=== PATIENT | female | born 1980 | race Caucasian/White ===

== ENCOUNTER → 2018-05-09 | Outpatient (CLI) | payer MEDICAID, OTHER ==
--- NOTE | 2018-05-09 08:43 | US ---
EXAMINATION TYPE: US pelvis complete transvag DATE OF EXAM: 05/09/2018 COMPARISON: NONE CLINICAL HISTORY: N92.0 Menorrhagia. Heavy menses TECHNIQUE: Transvaginal (TV) and Transabdominal (TA) . Transabdominal sonographic images of the pel vis were acquired. Transvaginal sonographic images were medically necessary to better assess the fol lowing anatomy: Endometrium Date of LMP: 04/16/2018, EXAM MEASUREMENTS: Uterus: 9.7 x 6.9 x 5.4 cm Endometrial Stripe: 1.5 cm Right Ovary: 3.6 x 2.4 x 2.7 cm Left Ovary: 4.0 x 2.8 x 2.1 cm 1. Uterus: Retroverted Appears heterogenous 2. Endometrium: Upper limits of normal. Possible echogenic focus with vascular stalk - 1.0 x 0.9 x 0.8 cm 3. Right Ovary: simple cystic appearing lesion - 2.6 x 2.0 x 2.5 cm 4. Left Ovary: Hypoechoic lesion with peripheral vascular flow - 1.7 x 1.8 x 2.0 cm 5. Bilateral Adnexa: free fluid seen adjacent to left ovary 6. Posterior cul-de-sac: free fluid There is heterogeneous retroverted uterus with central lobulated hyperechoic area towards the fundus contiguous with endometrium could reflect focal polyp or hyperplasia. Small moderate free fluid seen in pelvic cul-de-sac. Both ovaries are seen with nonsimple cysts identified bilaterally. IMPRESSION: 1. Suspect 1.0 cm endometrial polyp or focal hyperplasia, findings could be better evaluated with pasquale ine infused hysterosonography if desired. 2. Nonsimple cyst bilateral ovaries, advised ultrasound reevaluation 6 weeks' time to reassess.
== END | disposition home or self-care (01) ==
LOC: RADUSWWP 06:51
PROVIDERS: ATTEND Family Medicine
DX: N83.201 Unspecified ovarian cyst, right side (principal); N83.202 Unspecified ovarian cyst, left side
CPT/HCPCS: 76830; 76856

== ENCOUNTER → 2018-05-09 | Outpatient (CLI) | payer MEDICAID, OTHER ==
--- NOTE | 2018-05-09 12:28 | MM ---
Reason for exam: screening (asymptomatic). History: Took hormonal contraceptives beginning at age 19. Physical Findings: A clinical breast exam by your physician is recommended on an annual basis and results should be correlated with mammographic findings. MG 3D Screening Mammo W/Cad Bilateral CC and MLO view(s) were taken. The breast tissue is heterogeneously dense. This may lower the sensitivity of mammography. There is no discrete abnormality. These results were verbally communicated with the patient and result sheet given to the patient on 05/09/18. ASSESSMENT: Negative, BI-RAD 1 RECOMMENDATION: Routine screening mammogram of both breasts in 1 year.
== END ==
LOC: RADMAMWWP 06:54
PROVIDERS: ATTEND Obstetrics & Gynecology Obstetrics
DX: Z12.31 Encounter for screening mammogram for malignant neoplasm of breast (principal)
CPT/HCPCS: 77063; 77067

== ENCOUNTER 2019-03-16 16:22 | Emergency (ER) | payer MEDICAID, OTHER ==
[2019-03-16] MEDS ORDERED: SODIUM CHLORIDE 0.9% 500 ML 500 ML IV STA (16:39)
[2019-03-16] MEDS ORDERED: NITROGLYCERIN SL TABS 0.4 MG TAB SUBLINGUAL STA (16:44)
[2019-03-16] MEDS ORDERED: NITROGLYCERIN OINT 1 INCH/GM PACKET TOPICAL STA (16:44)
[2019-03-16] MEDS ORDERED: ASPIRIN 81 MG PO STA (16:44)
--- NOTE | 2019-03-16 17:02 | ED ---
General Adult HPI - General Stated complaint: Chest and abd pain Time Seen by Provider: 03/16/19 16:25 Source: RN notes reviewed, old records reviewed - History of Present Illness Initial comments: This is a 38-year-old female presents emergency Department with pressure on the chest throughout. Patient states she also became very flushed in this occurred. Patient also states she's extremely nauseated. Patient has a history of smoking but quit a few years ago. Patient has a positive family history of heart disease. Patient denies any palpitations. Patient denies any recent fever chills or cough. Patient denies any vomiting or diarrhea. Patient states she does have a little discomfort in the epigastric region. Patient denies any radiation of the discomfort to her jaw back or arm. Patient denies any swelling or calf tenderness. - Related Data Home Medications Medication Instructions Recorded Confirmed No Known Home Medications 03/16/19 03/16/19 Allergies Allergy/AdvReac Type Severity Reaction Status Date / Time No Known Allergies Allergy Verified 03/16/19 17:17 Review of Systems ROS Statement: Those systems with pertinent positive or pertinent negative responses have been documented in the HPI. ROS Other: All systems not noted in ROS Statement are negative. General Exam - General Exam Comments Initial Comments: GENERAL: Patient is well-developed and well-nourished. Patient is nontoxic and well- hydrated and is in mild distress. ENT: Neck is soft and supple. No significant lymphadenopathy is noted. Oropharynx is clear. Moist mucous membranes. Neck has full range of motion without e liciting any pain. EYES: The sclera were anicteric and conjunctiva were pink and moist. Extraocular movements were intact and pupils were equal round and reactive to light. Eyelids were unremarkable. PULMONARY: Unlabored respirations. Good breath sounds bilaterally. No audible rales rhonchi or wheezing was noted. CARDIOVASCULAR: There is a regular rate and rhythm without any murmurs gallops or rubs. ABDOMEN: Mild epigastric abdominal pain SKIN: Skin is clear with no lesions or rashes and otherwise unremarkable. NEUROLOGIC: Patient is alert and oriented x3. Cranial nerves II through XII are grossly intact. Motor and sensory are also intact. Normal speech, volume and content. Symmetrical smile. MUSCULOSKELETAL: Normal extremities with adequate strength and full range of motion. No lower extremity swelling or edema. No calf tenderness. LYMPHATICS: No significant lymphadenopathy is noted PSYCHIATRIC: Normal psychiatric evaluation. Course Vital Signs 03/16/19 03/16/19 03/16/19 17:07 17:11 17:53 Temperature 98.6 F Pulse Rate 87 73 Pulse Rate [ 94 [employer] Del[employer] ] Respiratory 18 18 Rate Blood Pressure 121/93 129/80 O2 Sat by Pulse 98 Oximetry Medical Decision Making - Medical Decision Making EKG shows a normal sinus rhythm at 82 bpm [place] interval is 144 QRS is 70 QT interval 370 QTC is 432. Patient's troponin elevation or depression. Chest x-ray shows no acute abnormality. Gallbladder showed no obvious abnormalities. Patient's common bile duct could not be visualized. Patient was feeling better but still continued to have some chest pressure. Patient did not want to stay and stated that she understood the risks and would be going home. I convinced the patient to stay for a second troponin after which if it is normal she will go home. I still recommended the patient stay. - Lab Data Result diagrams: 03/16/19 14:57 03/16/19 14:57 Lab Results 03/16/19 03/16/19 03/16/19 Range/Units 14:57 14:57 14:57 WBC 10.8 H (3.8-10.6) k/uL RBC 4.88 (3.80-5.40) m/uL Hgb 14.6 (11.4-16.0) gm/dL Hct 44.0 (34.0-46.0) % MCV 90.2 (80.0-100.0) fL MCH 29.9 (25.0-35.0) pg MCHC 33.2 (31.0-37.0) g/dL RDW 12.9 (11.5-15.5) % Plt Count 269 (150-450) k/uL Neutrophils % 66 % Lymphocytes % 25 % Monocytes % 5 % Eosinophils % 2 % Basophils % 1 % Neutrophils # 7.1 (1.3-7.7) k/uL Lymphocytes # 2.7 (1.0-4.8) k/uL Monocytes # 0.5 (0-1.0) k/uL Eosinophils # 0.2 (0-0.7) k/uL Basophils # 0.1 (0-0.2) k/uL PT 9.9 (9.0-12.0) sec INR 0.9 (<1.2) APTT 22.8 (22.0-30.0) sec D-Dimer (<0.60) mg/L FEU Sodium 136 L (137-145) mmol/L Potassium 3.7 (3.5-5.1) mmol/L Chloride 104 (98-107) mmol/L Carbon Dioxide 25 (22-30) mmol/L Anion Gap 7 mmol/L BUN 9 (7-17) mg/dL Creatinine 0.69 (0.52-1.04) mg/dL Est GFR (CKD-EPI)AfAm >90 (>60 ml/min/1.73 sqM) Est GFR (CKD-EPI)NonAf >90 (>60 ml/min/1.73 sqM) Glucose 89 (74-99) mg/dL Calcium 10.1 (8.4-10.2) mg/dL Magnesium 2.1 (1.6-2.3) mg/dL Total Bilirubin 0.6 (0.2-1.3) mg/dL AST 25 (14-36) U/L ALT 15 (4-34) U/L Alkaline Phosphatase 72 (38-126) U/L Troponin I (0.000-0.034) ng/mL Total Protein 7.2 (6.3-8.2) g/dL Albumin 4.3 (3.5-5.0) g/dL Amylase 49 (30-110) U/L Lipase 59 (23-300) U/L 03/16/19 03/16/19 Range/Units 14:57 14:57 WBC (3.8-10.6) k/uL RBC (3.80-5.40) m/uL Hgb (11.4-16.0) gm/dL Hct (34.0-46.0) % MCV (80.0-100.0) fL MCH (25.0-35.0) pg MCHC (31.0-37.0) g/dL RDW (11.5-15.5) % Plt Count (150-450) k/uL Neutrophils % % Lymphocytes % % Monocytes % % Eosinophils % % Basophils % % Neutrophils # (1.3-7.7) k/uL Lymphocytes # (1.0-4.8) k/uL Monocytes # (0-1.0) k/uL Eosinophils # (0-0.7) k/uL Basophils # (0-0.2) k/uL PT (9.0-12.0) sec INR (<1.2) APTT (22.0-30.0) sec D-Dimer 0.32 (<0.60) mg/L FEU Sodium (137-145) mmol/L Potassium (3.5-5.1) mmol/L Chloride (98-107) mmol/L Carbon Dioxide (22-30) mmol/L Anion Gap mmol/L BUN (7-17) mg/dL Creatinine (0.52-1.04) mg/dL Est GFR (CKD-EPI)AfAm (>60 ml/min/1.73 sqM) Est GFR (CKD-EPI)NonAf (>60 ml/min/1.73 sqM) Glucose (74-99) mg/dL Calcium (8.4-10.2) mg/dL Magnesium (1.6-2.3) mg/dL Total Bilirubin (0.2-1.3) mg/dL AST (14-36) U/L ALT (4-34) U/L Alkaline Phosphatase (38-126) U/L Troponin I <0.012 (0.000-0.034) ng/mL Total Protein (6.3-8.2) g/dL Albumin (3.5-5.0) g/dL Amylase (30-110) U/L Lipase (23-300) U/L Disposition Clinical Impression: Chest pain Disposition: HOME SELF-CARE Condition: Good Instructions (If sedation given, give patient instructions): Chest Pain (ED) Referrals: Avinash Holguin MD [Primary Care Provider] - 1-2 days Time of Disposition: 18:40
[2019-03-16 17:10] VITALS: RESP 18
[2019-03-16 17:10] LABS: Basophils # (A) 0.1 k/uL (0-0.2); Basophils % (A) 1 %; Eosinophils # (A) 0.2 k/uL (0-0.7); Eosinophils % (A) 2 %; HGB 14.6 gm/dL (11.4-16.0); Lymphocytes # (A) 2.7 k/uL (1.0-4.8); Lymphocytes % (A) 25 %; MCH 29.9 pg (25.0-35.0); MCHC 33.2 g/dL (31.0-37.0); MCV 90.2 fL (80.0-100.0); Mean Platelet Volume 7.2; Monocytes # (A) 0.5 k/uL (0-1.0); Monocytes % (A) 5 %; Neutrophils # (A) 7.1 k/uL (1.3-7.7); Neutrophils % (A) 66 %; Platelet Count 269 k/uL (150-450); RBC 4.88 m/uL (3.80-5.40); RDW 12.9 % (11.5-15.5); WBC 10.8 k/uL (3.8-10.6)
[2019-03-16] MEDS ORDERED: ONDANSETRON 4 MG/2 ML VIAL IVP STA (17:10)
[2019-03-16] MEDS ORDERED: METOCLOPRAMIDE 5 MG/ML 2 ML VIAL IVP STA (17:14)
[2019-03-16 17:31] LABS: INR 0.9 (<1.2); Partial Thromboplastin Time 22.8 sec (22.0-30.0); Prothrombin Time 9.9 sec (9.0-12.0)
[2019-03-16 18:00] LABS: ALT 15 U/L (4-34); AST 25 U/L (14-36); African American GFR (CKD) >90 (>60 ml/min/1.73 sqM); Albumin 4.3 g/dL (3.5-5.0); Alkaline Phosphatase 72 U/L (38-126); Amylase 49 U/L (30-110); Anion Gap 7 mmol/L; Blood Urea Nitrogen 9 mg/dL (7-17); Calcium 10.1 mg/dL (8.4-10.2); Carbon Dioxide 25 mmol/L (22-30); Chloride 104 mmol/L (98-107); Glucose 89 mg/dL (74-99); Magnesium 2.1 mg/dL (1.6-2.3); Non-African American GFR(CKD) >90 (>60 ml/min/1.73 sqM); Potassium 3.7 mmol/L (3.5-5.1); Sodium 136 mmol/L (137-145); Total Bilirubin 0.6 mg/dL (0.2-1.3); Total Protein 7.2 g/dL (6.3-8.2)
--- NOTE | 2019-03-16 18:19 | US ---
EXAMINATION TYPE: US gallbladder DATE OF EXAM: 03/16/2019 COMPARISON: NONE CLINICAL HISTORY: Epigastric abdominal pain. Epigastric pain x 1 hour. Nausea. EXAM MEASUREMENTS: Liver Length: 15.7 cm Gallbladder Wall: 0.29 cm CBD: Not visualized Right Kidney: 10.3 x 5.0 x 4.3 cm Limited due to overlying bowel gas. Pancreas: Tail slightly obscured. Portions seen appear to be wnl. Liver: Appears to be wnl. Gallbladder: Appears to be anechoic. Evidence for sonographic Talavera's sign: No CBD: Not visualized Right Kidney: No hydronephrosis or masses seen. Lower pole slightly limited due to gas. There is no ascites. IMPRESSION: No significant abnormality is evident, limited exam
--- NOTE | 2019-03-16 18:21 | XR ---
EXAMINATION TYPE: XR chest 2V DATE OF EXAM: 03/16/2019 COMPARISON: Prior chest x-ray 07/31/2009 HISTORY: Pain and nausea TECHNIQUE: Frontal and lateral views of the chest are obtained on 3 images. FINDINGS: There is no focal air space opacity, pleural effusion, or pneumothorax seen. The cardiac silhouette size is within normal limits. The osseous structures are intact, suspect mild pectus def ormity, there is mild spinal curvature. There are overlying artifacts. IMPRESSION: No acute cardiopulmonary process. Additional findings above.
[2019-03-16 21:31] VITALS: BP 102/67; PULSE 70; TEMP 98
== END 2019-03-16 21:32 | disposition home or self-care (01) ==
LOC: EC 16:22
DX: R07.89 Other chest pain (principal); R79.89 Other specified abnormal findings of blood chemistry; R10.13 Epigastric pain; Z53.20 Procedure and treatment not carried out because of patient's decision for unspecified reasons; Z87.891 Personal history of nicotine dependence; Z82.49 Family history of ischemic heart disease and other diseases of the circulatory system
CPT/HCPCS: 36415; 93005; 85379; 80053; 82150; 83690; 83735; 84484; 85025; 85610; 85730; 71046; 76705; 99285; 96374; 96375; 96361 ×4; J2765; J2405

== ENCOUNTER → 2019-04-14 | Outpatient (CLI) | payer MEDICAID, OTHER ==
--- NOTE | 2019-04-15 09:32 | MR ---
EXAMINATION TYPE: MR brain wo con DATE OF EXAM: 04/14/2019 COMPARISON: NONE HISTORY: 38-year-old female are 49, ocular disturbance left eye, headache TECHNIQUE: Multiplanar, multisequence images of the brain and brainstem were acquired without IV con trast. Diffusion weighted imaging is performed. FINDINGS: No evidence for acute infarction, hemorrhage, mass, mass effect, midline shift, herniation, effacemen t of basal cisterns, or extra-axial fluid collection. The ventricles and sulci are age-appropriate. Major intracranial flow voids are intact. T2/FLAIR weighted sequences show no white matter signal abnormality. 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 Otherw ise, midline structures demonstrate normal morphology. The craniocervical junction is normal. Moderate mucosal thickening throughout the maxillary sinuses and ethmoid air cells. Trace mucosal thi ckening frontal sinuses. Globes are intact. Small amount of fluid within the inferior left mastoid ai r cells. IMPRESSION: 1. A 1.1 cm thin-walled cyst of the bunion of gland abutting the dorsal surface of the tectum. 2. No acute intracranial abnormality or white matter signal changes. 3. Moderate chronic maxillary and ethmoid sinus disease. 4. Some fluid trapped in the inferior left mastoid air cells. Correlate for any mastoid pain to exclu de mastoiditis.
== END | disposition home or self-care (01) ==
LOC: RADMRIMAIN 13:37
PROVIDERS: ATTEND Family Medicine
DX: G93.0 Cerebral cysts (principal)
CPT/HCPCS: 70551

== ENCOUNTER → 2020-06-15 | Outpatient (CLI) | payer MEDICAID, OTHER ==
--- NOTE | 2020-06-16 07:34 | MR ---
EXAMINATION TYPE: MR brain wo con DATE OF EXAM: 06/15/2020 COMPARISON: MRI brain April 14, 2019 HISTORY: Evaluate cyst of pineal gland. Prior abnormal MRI. TECHNIQUE: Multiplanar, multisequence imaging of the brain and brainstem is performed without IV cont rast. FINDINGS: Diffusion weighted images demonstrate no evidence of a recent infarct or other diffusion abnormality. There is no extraaxial fluid collection or significant white matter signal abnormality. The ventricu lar system and cisternal spaces are normal in size and appearance. The brain volume is age appropria te. Midline structures demonstrate normal morphology. Stable 1.0-1.1 cm pineal gland cyst axial image 15 . The craniocervical junction appears within normal limits. Normal vascular flow voids are present. S ome artifact distortion inferior aspect bilateral maxillary sinuses redemonstrated with suspected per sistent mild mucosal thickening bilaterally and 1.0 cm mucous retention cyst or polyp on the left. Fi ndings improved from prior. Globes remain intact. Persistent patchy fluid left mastoid air cells. 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 Improved inferior maxillary sinus disease otherwise no s ignificant interval change from prior.
== END | disposition home or self-care (01) ==
LOC: RADMRIMAIN 15:28
PROVIDERS: ATTEND Family Medicine
DX: E34.8 Other specified endocrine disorders (principal); J32.0 Chronic maxillary sinusitis
CPT/HCPCS: 70551

== ENCOUNTER → 2020-08-25 | Outpatient (CLI) | payer MEDICAID, OTHER ==
--- NOTE | 2020-08-25 08:42 | XR ---
EXAMINATION TYPE: XR chest 2V DATE OF EXAM: 08/25/2020 COMPARISON: Chest x-ray 03/16/2019 HISTORY: C 54.1 TECHNIQUE: Frontal and lateral views of the chest are obtained. FINDINGS: There is no focal air space opacity, pleural effusion, or pneumothorax seen. The cardiac silhouette size is within normal limits. The osseous structures are intact, there is a spinal curva ture. IMPRESSION: No acute cardiopulmonary process.
[2020-08-25 14:40] LABS: Basophils # (A) 0.06 X 10*3/uL (0.00-0.10); Basophils % (A) 0.7 %; Eosinophils # (A) 0.23 X 10*3/uL (0.04-0.35); Eosinophils % (A) 2.9 %; HCT 46.1 % (37.2-46.3); HGB 15.1 g/dL (12.0-15.0); Lymphocytes # (A) 3.23 X 10*3/uL (0.90-5.00); Lymphocytes % (A) 40.3 %; MCHC 32.8 g/dL (32.0-37.0); MCV 91.7 fL (80.0-97.0); Mean Platelet Volume 9.7 fL (9.5-12.2); Monocytes # (A) 0.56 X 10*3/uL (0.20-1.00); Neutrophils # (A) 3.91 X 10*3/uL (1.80-7.70); Neutrophils % (A) 48.7 %; Platelet Count 309 X 10*3/uL (140-440); RBC 5.03 X 10*6/uL (4.10-5.20); RDW 13.2 % (11.5-14.5); WBC 8.02 X 10*3/uL (4.50-10.00)
[2020-08-25 15:32] LABS: African American GFR (CKD) 91.4 (60.0-200.0); Albumin 4.6 g/dL (3.80-4.90); Anion Gap 8.2 mmol/L (4.00-12.00); BUN/Creat Ratio 14.44 Ratio (12.00-20.00); Calcium 10.1 mg/dL (8.7-10.3); Carbon Dioxide 23.8 mmol/L (21.6-31.8); Globulin 2.3 g/dL (1.6-3.3); Non-African American GFR(CKD) 78.9 (60.0-200.0); Potassium 4.5 mmol/L (3.5-5.5); Total Bilirubin 0.3 mg/dL (0.3-1.2); Total Protein 6.9 g/dL (6.2-8.2)
[2020-08-25 16:08] LABS: Cancer Antigen 125 10.8 U/mL (0.0-30.1)
== END | disposition home or self-care (01) ==
LOC: LABWHC1 08:11
PROVIDERS: ATTEND Obstetrics & Gynecology Gynecologic Oncology
DX: C54.1 Malignant neoplasm of endometrium (principal)
CPT/HCPCS: 36415; 71046; 80053; 82378; 85025; 86304

== ENCOUNTER → 2020-08-25 | Outpatient (CLI) | payer MEDICAID, OTHER ==
--- NOTE | 2020-08-29 15:16 | MM ---
Reason for exam: screening (asymptomatic). Last mammogram was performed 2 years and 4 months ago. History: Patient is postmenopausal and has history of endometrial cancer at age 39. Family history of breast cancer in maternal aunt at age 63. Took hormonal contraceptives beginning at age 19. Physical Findings: A clinical breast exam by your physician is recommended on an annual basis and results should be correlated with mammographic findings. MG 3D Screening Mammo W/Cad Bilateral CC and MLO view(s) were taken. Prior study comparison: May 09, 2018, bilateral MG 3d screening mammo w/cad. The breast tissue is heterogeneously dense. This may lower the sensitivity of mammography. No significant changes when compared with prior studies. ASSESSMENT: Negative, BI-RAD 1 RECOMMENDATION: Routine screening mammogram of both breasts in 1 year.
== END | disposition home or self-care (01) ==
LOC: RADMAMWWP 07:50
PROVIDERS: ATTEND Obstetrics & Gynecology Gynecologic Oncology
DX: Z12.31 Encounter for screening mammogram for malignant neoplasm of breast (principal)
CPT/HCPCS: 77063; 77067

== ENCOUNTER → 2021-01-25 | Day surgery (SDC) | payer MEDICAID, OTHER ==
[2021-01-24 10:12] VITALS: BMI 36.0
[~2021-01-25] MED LIST: LACTATED RINGERS 1,000 ML IV SCH; LIDOCAINE 1% (10MG/ML) FOR IV START INTRADERMA PRN; PROPOFOL 10 MG/ML 20 ML VIAL IV ONE
[2021-01-25 11:00] VITALS: TEMP 97.6
--- NOTE | 2021-01-25 12:04 | P.PCN ---
Date of Procedure: 01/25/21 Procedure(s) Performed: BRIEF HISTORY: Patient is a 40-year-old pleasant white female scheduled for an elective colonoscopy as a part of change in bowel habits. She has history of endometrial carcinoma diagnosed a year ago and is status post total abdominal hysterectomy. She denies any family history of colorectal neoplasia PROCEDURE PERFORMED: Colonoscopy. PREOPERATIVE DIAGNOSIS: Change in bowel habits. IV sedation per Anesthesia. PROCEDURE: After informed consent was obtained, the patient, was brought into the endoscopy unit. IV sedation was administered by Anesthesia under continuous monitoring. Digital rectal examination was normal. Initially the Olympus CF-160 flexible video colonoscope was then inserted in the rectum, gradually advanced into the cecum without any difficulty. Careful examination was performed as the scope was gradually being withdrawn. Ileocecal valve and the appendiceal orifice were visualized and appeared normal. Prep was excellent. Mucosa of the cecum, ascending colon, transverse colon, descending colon, sigmoid colon, and rectum appeared normal. Retroflexion was performed in the rectum and no lesions were seen. The patient tolerated the procedure well. IMPRESSION: Normal-appearing colon from rectum to cecum no evidence of colorectal neoplasia . RECOMMENDATIONS: Findings of this examination were discussed with the patient as well as a family. She was advised to have a repeat screening colonoscopy at age 48.
[2021-01-25 12:25] VITALS: BP 107/56; PULSE 71; RESP 16
== END ==
LOC: ORWHC2ENDO 10:14
PROVIDERS: ATTEND Internal Medicine Gastroenterology
DX: R19.4 Change in bowel habit (principal)
CPT/HCPCS: 45378; J2704

== ENCOUNTER → 2021-03-10 | Outpatient (CLI) | payer OTHER ==
[2021-03-10 20:15] LABS: Basophils # (A) 0.03 X 10*3/uL (0.00-0.10); Basophils % (A) 0.5 %; Eosinophils # (A) 0.07 X 10*3/uL (0.04-0.35); Eosinophils % (A) 1.2 %; HCT 45.1 % (37.2-46.3); HGB 14.8 g/dL (12.0-15.0); Lymphocytes # (A) 2.16 X 10*3/uL (0.90-5.00); Lymphocytes % (A) 36.6 %; MCH 29.5 pg (27.0-32.0); MCHC 32.8 g/dL (32.0-37.0); MCV 89.8 fL (80.0-97.0); Monocytes # (A) 0.44 X 10*3/uL (0.20-1.00); Monocytes % (A) 7.5 %; Neutrophils # (A) 3.18 X 10*3/uL (1.80-7.70); Neutrophils % (A) 53.9 %; Platelet Count 279 X 10*3/uL (140-440); RBC 5.02 X 10*6/uL (4.10-5.20); RDW 12.9 % (11.5-14.5)
[2021-03-11 00:02] LABS: African American GFR (CKD) 89.1 (60.0-200.0); Albumin 4.4 g/dL (3.8-4.9); Albumin/Globulin Ratio 2.06 (1.60-3.17); Anion Gap 9.2 mmol/L (10.00-18.00); BUN/Creat Ratio 10.41 Ratio (12.00-20.00); Blood Urea Nitrogen 9.6 mg/dL (9.0-27.0); Calcium 9.9 mg/dL (8.7-10.3); Cancer Antigen 125 10.5 U/mL (0.0-30.1); Carbon Dioxide 24.1 mmol/L (20.0-27.5); Globulin 2.1 g/dL (1.6-3.3); Non-African American GFR(CKD) 76.9 (60.0-200.0); Potassium 4.3 mmol/L (3.5-5.5); Total Bilirubin 0.3 mg/dL (0.30-1.20); Total Protein 6.5 g/dL (6.2-8.2)
== END | disposition home or self-care (01) ==
LOC: LABMAIN 11:17
PROVIDERS: ATTEND Obstetrics & Gynecology Gynecologic Oncology
DX: C54.1 Malignant neoplasm of endometrium (principal)
CPT/HCPCS: 80053; 82378; 85025; 86304